=== PATIENT | female | born 2005 | race Caucasian/White ===

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

== ENCOUNTER 2023-05-14 15:25 | Emergency (ER) | payer SELFPAY ==
[~2023-05-14] VITALS: Ht 154.9 cm; Wt 65.8 kg
[2023-05-14 15:40] VITALS: BP 125/70; PULSE 79; RESP 16; TEMP 97.5; O2SAT 98
[2023-05-14] MEDS ORDERED: LID5T TP (16:16)
[2023-05-14] MEDS ORDERED: CYCL-711 PO (16:16)
[2023-05-14] MEDS ORDERED: NAPR-54 PO (16:16)
[2023-05-14] MEDS: KETOROLAC 30 MG/ML VIAL IM ONE (16:24)
== END 2023-05-14 16:44 | disposition home or self-care (01) ==
LOC: MED 15:25
DX: M54.6 Pain in thoracic spine (principal); Z79.899 Other long term (current) drug therapy
CPT/HCPCS: 81025; 96372; 99283; J1885